=== PATIENT | female | born 1965 | race Caucasian/White ===

== ENCOUNTER → 2017-02-04 | Outpatient (CLI) | payer MEDICAID ==
[~2017-02-04] MED LIST: ADVAIR 10028 PUFF/IN IN; DIAZEPAM10 MG PO; GABAPENTIN300 MG PO; HCTZ/LISINOPRIL1 TA3 PO; LISINOPRIL 20MG20 MG PO; LORTAB 10/3251 TAB PO; LOVASTATIN20 MG PO; LYRICA 100 MG100 MG PO; OMEPRAZOLE20 MG PO; PERCOCET 325 MG1 TA3 PO; PERCOCET 325 MG1 TA4 PO; PRIMIDONE 50 MG50 MG PO; PROZAC 20MG CAP20 MG PO; VENLAFAXINE HYD75 MG PO; VENLAFAXINE75 M1 PO; VENTOLIN H0.09 MG/AC IH; WELLBUTRIN 75MG75 MG PO; XANAX 1MG TABLET1 MG PO
[2017-02-04 14:16] LABS: AMPHETAMINES/METAMPHETAMINES NEGATIVE ng/mL (<1000)
== END ==
LOC: LAB 13:49
PROVIDERS: Emergency Medicine
DX: Z79.899 Other long term (current) drug therapy (principal)